=== PATIENT | female | born 1985 | race Two or more races ===

== ENCOUNTER → 2018-05-05 | Outpatient (CLI) | payer OTHER ==
--- NOTE | 2018-05-05 16:03 | RAD ---
Pelvic ultrasound, 05/05/2018: HISTORY: Pelvic pain, abnormal menstrual bleeding Transabdominal and transvaginal scans were obtained. The uterus was best demonstrated on the transvaginal scans. It measures 9.2 x 4.5 x 3.9 cm. The intrauterine echo complex measures 6 mm in AP dimension. A small Nabothian cyst is seen. The uterus is otherwise unremarkable. The ovaries are of normal size. There are multiple small follicular cysts in both ovaries. Blood flow is present in the ovaries. No adnexal mass is evident. No free fluid is identified in the pelvis. IMPRESSION: 1. Small nabothian cyst. 2. No significant abnormality is detected. Electronically signed by: Heber Irby MD (05/05/2018 4:00 PM) [facility]
== END | disposition home or self-care (01) ==
LOC: US 10:41
PROVIDERS: ATTEND Physician Assistant
DX: N83.02 Follicular cyst of left ovary (principal); N83.01 Follicular cyst of right ovary; N88.8 Other specified noninflammatory disorders of cervix uteri
CPT/HCPCS: 76830; 76856